=== PATIENT | female | born 1955 | race Caucasian/White ===

== ENCOUNTER 2017-04-17 14:53 | Observation (INO) ==
[2017-04-17 15:07] LABS: MANUAL DIFF NEEDED? NO
[2017-04-17 15:11] LABS: BASO% 0.7 % (0.0-0.8); EOS# 0.24 X1000 (0.0-0.7); HEMATOCRIT 45.8 % (37.0-47.0); HEMOGLOBIN 14.9 g/dL (12.0-16.0); LYMPH# 2.44 X1000 (1.2-3.4); LYMPH% 30.2 % (20.5-51.1); MCH 31.2 PG (27-31); MCHC 32.5 g/dL (33-37); MONO# 0.81 X1000 (0.11-0.59); MPV 11.3 FL (7.4-10.4); NEUT% 56.1 % (42.2-75.2); PLT 276 X1000 (130-400); RBC 4.77 XMIL (4.2-5.4)
[2017-04-17 15:32] LABS: AGAP 14; ALBUMIN 4.1 g/dL (3.5-5.0); ALKALINE PHOSPHATASE 80 U/L (32-104); AMYLASE 48 U/L (20-200); BUN 9 mg/dL (8-22); CHLORIDE 102 mmol/L (98-107); COSMO 276; GOT 15 U/L (10-30); GPT 9 U/L (10-36); LIPASE 28 U/L (13-60); POTASSIUM 4.6 mmol/L (3.5-5.1); SODIUM 139 mmol/L (136-145); TCO2 23 mmol/L (25-35); TOTAL PROTEIN 7.4 g/dL (6.3-8.3)
--- NOTE | 2017-04-17 16:10 | Diag Imaging Result Doc PS360 ---
RENAL STONE SEARCH - 04/17/2017 INDICATION: ABD PN TECHNIQUE: A CT dose reduction protocol was used. COMPARISON: None FINDINGS: No radiodense renal stones. No hydronephrosis or hydroureter. No bowel obstruction or inflammation. Normal appendix. Uterus is absent. Urinary bladder and rectum are normal. There is advanced degeneration at L5-S1 with sclerosis. No suspicious bony lesions. IMPRESSION: No acute disease. Electronically signed by Ash Crockett 04/17/2017 4:08 PM
[2017-04-17 16:15] LABS: SED RATE 7 mm/hr (0-20)
[2017-04-17] MEDS ORDERED: MAALOX PLUS LIQUID PO PRN (16:49)
[2017-04-17] MEDS ORDERED: TYLENOL PO PRN (16:49)
[2017-04-17] MEDS ORDERED: AMBIEN PO PRN (16:52)
[2017-04-17] MEDS ORDERED: ZOFRAN IV PRN (16:56)
[2017-04-17] MEDS ORDERED: DILAUDID IV PRN (16:56)
[2017-04-17] MEDS: NS 1,000 ML IV SCH (18:38)
[2017-04-17] MEDS: ROBAXIN PO SCH (18:41)
[2017-04-17] MEDS: NICODERM PATCH TD SCH (18:41)
[2017-04-17] MEDS: SODIUM CHLORIDE 0.9% INJ SCH (18:42)
[2017-04-17] MEDS: PROTONIX IV SCH (18:42)
[2017-04-18 05:33] LABS: MANUAL DIFF NEEDED? NO
--- NOTE | 2017-04-18 05:42 | HISTORY AND PHYSICAL ---
CHIEF COMPLAINT: Right abdominal pain and right low back pain. "I feel like something is about to burst in my side." HISTORY OF PRESENT ILLNESS: The patient is a 61-year-old, white female, followed in my medical practice, who comes in stating for the past week, she has simply not felt well. She has had no specific complaints until this morning. She got up and seemed okay and then she was working about when she developed some pain in her right flank and right abdomen radiating down to the right groin area. She denies gross hematuria but had nausea. No vomiting. No fever. Possibly some slight dysuria. She says she ate well yesterday and this morning, as she felt well, she ate Vanilla Wafers and drank her coffee for breakfast. She has been stooling well. Denies diarrhea. No history of kidney stones in the past. MEDICATIONS PRIOR TO ADMISSION: Paxil 20 mg p.o. at bedtime, Synthroid 125 mcg p.o. daily, Ambien 10 mg p.o. at bedtime, rare ibuprofen, OTC Zantac, vitamin D 50,000 international units p.o. 1 time per week. ALLERGIES: Sulfa. PAST MEDICAL HISTORY: 1. Depression diagnosed in 1996. 2. Hypothyroidism diagnosed in 2009. 3. History of DVT left lower extremity, September 2013. 4. Left lower extremity post phlebitic syndrome, May 2014. 5. Vitamin D deficiency diagnosed December 2016. PAST SURGICAL HISTORY: MAGGIE/BSO secondary to cyst and fibroids in 1994. IMMUNIZATIONS: Zostavax given 05/30/2015. FAMILY HISTORY: Notable for mother dying at age 90. Father with lung cancer. Mother with hypertension. No diabetes or MIs in the family. Stroke in her father. Polymyalgia in her brother. SOCIAL HISTORY: Patient lives in [place]. She is , has 2 children. She works at [employer]. Smokes about 3/4 of a pack of cigarettes per day and has for about 30 years. She denies alcohol use. REVIEW OF SYSTEMS: Positive for some lower extremity paresthesias with negative workup of that except for the vitamin D deficiency back in December. Nerve conduction velocities of the lower extremities were done in February 2017, which were normal as were EMG findings. Otherwise ROS negative except as above. Again, no history of prior kidney stones. PHYSICAL EXAMINATION: VITAL SIGNS: Weight 221, which is fairly stable, blood pressure 132/88, pulse 66, temperature 97.7 degrees. GENERAL: Mildly obese white female, appears in discomfort with right abdominal pain. SKIN: No rashes identified over the flank or abdomen or elsewhere. HEENT: GLORIA, EOMI, sclerae clear. OP no redness. Tongue in midline. TMs clear. NECK: No LA, TMG, JVD, bruits. CV: RRR without murmur. LUNGS: CTA. BACK: Possible mild CVA tenderness but not particularly consistent. ABDOMEN: Soft, active bowel sounds. Minimal tenderness. Right lower quadrant. Vepd-rh-sdtulonm tenderness right upper quadrant. No mass or organomegaly. No rebound or guarding. BREASTS/PELVIC/RECTAL: Deferred. EXTREMITIES: No calf tenderness, cords or edema. NEUROLOGIC: Cranial nerves 2-12 are intact. Nonfocal. DIAGNOSTIC DATA: UA negative for blood. Negative nitrite and leukocytes, and altogether normal. Labs were obtained and include CBC, CMP, amylase, lipase. Sedimentation rate is 5. Other labs are normal. CT RSS was done and reveals prior hysterectomy, normal appendix. No gallstones were identified, and no inflammation in the right upper quadrant identified. No kidney stone. No abnormality. CT does show some degenerative changes of the L-spine at L5-S1. ASSESSMENT: 1. Right abdominal pain. 2. Degenerative changes, right low back. 3. Depression. 4. Vitamin D deficiency. 5. Hypothyroidism. 6. History of left lower extremity deep vein thrombosis. 7. Left lower extremity postphlebitic syndrome. PLAN: At this time, as the patient is complaining of severe pain, I feel like the patient requires admission and observation. We will repeat labs in the morning to include CBC, CMP, amylase and lipase. We will treat her in the hospital with IV fluids. Keep her NPO except for medications. We will check abdominal ultrasound in the morning with consideration for HIDA scan if that is negative. Will add IV Protonix. We will give pain control with Dilaudid and nausea control with Zofran. Consider GI and surgical evaluations if the patient worsens. cc: Red Moraes MD
[2017-04-18 05:47] LABS: BASO% 0.7 % (0.0-0.8); EOS# 0.19 X1000 (0.0-0.7); EOS% 2.6 % (0.0-10.0); HEMOGLOBIN 14.3 g/dL (12.0-16.0); IMM GRAN# 0.03 X1000 (0.0-0.04); IMM GRAN% 0.4 % (0.0-0.5); LYMPH# 2.67 X1000 (1.2-3.4); LYMPH% 35.8 % (20.5-51.1); MCH 30.8 PG (27-31); MCHC 32.5 g/dL (33-37); MCV 94.8 FL (81-99); MONO# 0.67 X1000 (0.11-0.59); MPV 11.3 FL (7.4-10.4); NEUT% 51.5 % (42.2-75.2); PLT 239 X1000 (130-400); RBC 4.64 XMIL (4.2-5.4)
[2017-04-18 06:09] LABS: AGAP 12; ALBUMIN 3.9 g/dL (3.5-5.0); ALKALINE PHOSPHATASE 74 U/L (32-104); AMYLASE 40 U/L (20-200); BUN 10 mg/dL (8-22); CALCIUM 8.6 mg/dL (8.8-10.2); CHLORIDE 105 mmol/L (98-107); COSMO 280; GOT 14 U/L (10-30); GPT 8 U/L (10-36); LIPASE 23 U/L (13-60); POTASSIUM 4.1 mmol/L (3.5-5.1); SODIUM 141 mmol/L (136-145); TCO2 24 mmol/L (25-35); TOTAL BILIRUBIN 0.39 mg/dL (0.20-1.00)
[2017-04-18] MEDS: SYNTHROID PO SCH (06:09)
[2017-04-18] MEDS: NS 1,000 ML IV SCH ×2 (06:09→20:16)
--- NOTE | 2017-04-18 09:49 | Diag Imaging Result Doc PS360 ---
US ABDOMEN-COMPLETE - 04/18/2017 INDICATION: abd pain COMPARISON: None FINDINGS: The liver, gallbladder, spleen, pancreas, and both kidneys are normal. Common bile duct measures 3 mm. Aorta, IVC, and main portal vein are patent. IMPRESSION: Negative exam. Electronically signed by Ash Crockett 04/18/2017 9:46 AM
--- NOTE | 2017-04-18 10:09 | Diag Imaging Result Doc PS360 ---
LUMBAR SPINE 2-VIEWS - 04/17/2017 INDICATION: back pain abd pain TECHNIQUE: Two views COMPARISON: None FINDINGS: There is advanced disc degeneration at L5-S1 with narrowing, vacuum disc phenomenon, and sclerosis. There are some smaller degenerative osteophytes elsewhere, notably at L1-L2. No evidence of fracture or subluxation. Sacroiliac joints are clear. Mild vascular disease of the distal aorta. IMPRESSION: Lumbar spondylosis. No acute disease. Electronically signed by Ash Crockett 04/18/2017 10:06 AM
[2017-04-18] MEDS: ROBAXIN PO SCH ×3 (10:52→18:28)
[2017-04-18] MEDS: PAXIL PO SCH (10:52)
[2017-04-18] MEDS ORDERED: DILAUDID IV PRN (11:31)
--- NOTE | 2017-04-18 12:04 | PROGRESS NOTE ---
DATE: 04/18/2017 SUBJECTIVE: The patient overall is doing better. No nausea or vomiting. Around 4 a.m., she began having severe pain again, right low back, right lower quadrant. No nausea or vomiting. She took Dilaudid and that relieved the pain. LABORATORY DATA: Reviewed workup, still showing normal CMP, amylase and lipase levels, and CBC is normal with a white count of 7.4, hemoglobin of 14.3, platelets 239, sed rate of 7. Urinalysis through the office was negative. IMAGING: LS spine x-rays show L5-S1 degenerative disk disease which is advanced. Smaller osteophytes and degenerative changes at L1-L2. CT RSS failed to show any inflammation at the appendix. No hydronephrosis or hydroureter. No bowel obstruction. No urinary or rectal abnormalities. No radiodense renal stones. Also, there were no inflammatory changes about the gallbladder, no gallstones seen on verbal report to me per Dr. Crockett. Abdominal ultrasound this morning shows liver, gallbladder, spleen,pancreas, and both kidneys normal. Common bile duct measures 3 mm. Aorta, IVC, and main portal vein are patent, negative exam. ASSESSMENT: 1. Right abdominal pain. 2. Right low back pain. 3. Depression. 4. Vitamin D deficiency. 5. Hypothyroidism. 6. History of remote left lower extremity DVT. 7. Mild left lower extremity postphlebitic syndrome. PLAN: For now, will repeat urinalysis today, continue Robaxin orally, continue Dilaudid sparingly, ambulate patient, advance diet, and monitor. If she does well, will discharge her home in the morning with outpatient HIDA scan later next week. cc: Red Moraes MD
[2017-04-18 14:44] LABS: URINE CULTURE NEEDED? NO; URINE MICRO REVIEW NEEDED? NO; URINE SOURCE CLEAN CATCH
[2017-04-18 14:48] LABS: BILIRUBIN URINE NEGATIVE (NEGATIVE); BLOOD URINE NEGATIVE (NEGATIVE); COLOR YELLOW; GLUCOSE URINE NEGATIVE (NEGATIVE); LEUKOCYTES URINE NEGATIVE (NEGATIVE); NITRITE URINE NEGATIVE (NEGATIVE); PH URINE 5.5; PROTEIN URINE NEGATIVE (NEGATIVE); SP GRAVITY URINE 1.006; TURBIDITY URINE CLEAR (CLEAR); UR EPITHELIAL CELLS <10 /HPF (<10); URINE BACTERIA 1+ /HPF; URINE RBC <10 /HPF (<10); URINE WBC <10 /HPF (<10); UROBILINOGEN URINE NORMAL (NORMAL)
[2017-04-18] MEDS: NICODERM PATCH TD SCH (18:28)
[2017-04-18] MEDS: PROTONIX IV SCH (18:29)
[2017-04-18] MEDS: SODIUM CHLORIDE 0.9% INJ SCH (18:29)
[2017-04-19] MEDS: SYNTHROID PO SCH (06:33)
[2017-04-19 08:05] VITALS: BP 129/57
[2017-04-19] MEDS: ROBAXIN PO SCH (08:39)
[2017-04-19] MEDS: PAXIL PO SCH (08:40)
--- NOTE | 2017-04-19 10:39 | PROGRESS NOTE ---
DATE: 04/19/2017 SUBJECTIVE: The patient is having no pain at this time. Her workup has been negative for her abdominal pain. OBJECTIVE: Vital signs: Blood pressure is 129/57, respirations 20, pulse 61, temp 98.0 degrees. HEENT: She is normocephalic. EOMs intact. PERRLA. Throat clear. Lungs: Clear to auscultation and percussion without rhonchi, rales, or wheezes. Heart: Regular rate rhythm without murmurs, gallops, or friction rubs. Abdomen: Soft. Active bowel sounds. No organomegaly or tenderness. Neurological: Intact grossly. ASSESSMENT AND PLAN: Her workup including CT scan of the collecting system and abdominal ultrasounds were negative except for some lumbar disk disease. I talked with Dr. Moraes earlier and he wanted me to discharge her if she was stable with Mobic 15 mg daily, I will give it to her for 1 month, no refills, and [place] 7.5, #20, 1 every 6 hours p.r.n. worse pain. At this time she is not having pain. I told her she could wait and get the [place] filled if she just needed it. Her description of her pain which was very sudden and sharp and severe and then went away and was getting better when she had her CT scan of the abdomen certainly sounds like a kidney stone that may have past and just did not leave any blood in the urine and missed on CT scan. It is unclear if that is what it was, but I suggested that she might want to strain her urine for the next few days and if she collects a stone to bring it to Dr. Moraes and he could have it analyzed. She said that when she had a CT scan of her abdomen she still had a little pain but it was not nearly as severe. I do not know whether she had pain medication at that time or whether she might have passed a stone off into her bladder and she was just getting a little spasm of the ureter. Still something else could have caused her pain but it is certainly not very obvious. I will give her hand prescription for her [place] and her Mobic and she can continue her other home medications. cc: MD Red Tai Jr, MD
== END 2017-04-19 13:28 | disposition home or self-care (01) ==
LOC: LABPTONLY 14:53 → 4N 16:39 → INTOOBSV 16:39
PROVIDERS: ADMIT Family Medicine; ATTEND Family Medicine